=== PATIENT | male | born 1955 | race Caucasian/White ===

== ENCOUNTER → 2023-07-11 07:26 | Outpatient (REF) | payer MEDICARE, OTHER, SELFPAY | LOC: MRI 07:26 | PROVIDERS: ATTENDING PHYSICIAN Nurse Practitioner Adult Health; FAMILY PHYSICIAN Family Medicine | DX: C10.9 Malignant neoplasm of oropharynx, unspecified (principal) | CPT/HCPCS: 70543; A9575 ==

== ENCOUNTER → 2024-04-17 06:59 | Outpatient (REF) | payer MEDICARE, OTHER, SELFPAY | LOC: MRI 06:59 | PROVIDERS: ATTENDING PHYSICIAN Physician Assistant Surgical; FAMILY PHYSICIAN Family Medicine | DX: M54.16 Radiculopathy, lumbar region (principal); M54.50 Low back pain, unspecified; M51.361 Other intervertebral disc degeneration, lumbar region with lower extremity pain only | CPT/HCPCS: 72148 ==